=== PATIENT | female | born 1945 | race Caucasian/White ===

== ENCOUNTER → 2017-03-21 | Outpatient (CLI) | payer OTHER ==
[~2017-03-21] MED LIST: ASPI81CH PO; ATOR20 PO; BACL10 PO; MAGNESIUM; OMEP20ER PO; PANT40 PO; PROLIA60 MG/1 ML SC; VITAMIN B12-FO1 EACH PO
== END | disposition home or self-care (01) ==
LOC: LAB 14:00
DX: N39.0 Urinary tract infection, site not specified (principal)
CPT/HCPCS: 87077; 87086; 87186

== ENCOUNTER → 2017-12-11 | Outpatient (CLI) | payer OTHER ==
[~2017-12-11] MED LIST changes: -ATOR20 PO; -BACL10 PO; -PANT40 PO; -PROLIA60 MG/1 ML SC
== END | disposition home or self-care (01) ==
LOC: LAB 17:38 → LAB SHORT 17:38
DX: R31.29 Other microscopic hematuria (principal)
CPT/HCPCS: 87077; 87086; 87186

== ENCOUNTER → 2018-05-01 | Outpatient (CLI) | payer OTHER ==
[~2018-05-01] MED LIST changes: +ATOR20 PO; +BACL10 PO; +PANT40 PO; +PROLIA60 MG/1 ML SC
[2018-05-01 14:21] LABS: Candida species (DNA Probe) Positive (NEGATIVE); G. vaginalis (DNA Probe) Negative (NEGATIVE); T. vaginalis (DNA Probe) Negative (NEGATIVE)
== END | disposition home or self-care (01) ==
LOC: LAB 10:53 → LAB SHORT 10:53
PROVIDERS: Nurse Practitioner Obstetrics & Gynecology
DX: N76.0 Acute vaginitis (principal)
CPT/HCPCS: 87480; 87510; 87660

== ENCOUNTER → 2018-07-01 | Outpatient (CLI) | payer OTHER ==
[2018-07-02 09:50] LABS: Candida species (DNA Probe) Positive (NEGATIVE); G. vaginalis (DNA Probe) Negative (NEGATIVE); T. vaginalis (DNA Probe) Negative (NEGATIVE)
== END | disposition home or self-care (01) ==
LOC: LAB SHORT 11:47 → LAB 11:47
PROVIDERS: Nurse Practitioner Obstetrics & Gynecology
DX: B37.3 Candidiasis of vulva and vagina (principal)
CPT/HCPCS: 87480; 87510; 87660

== ENCOUNTER → 2018-08-13 | Outpatient (CLI) | payer OTHER ==
[2018-08-14 06:27] LABS: Candida species (DNA Probe) Negative (NEGATIVE); G. vaginalis (DNA Probe) Negative (NEGATIVE); T. vaginalis (DNA Probe) Negative (NEGATIVE)
== END | disposition home or self-care (01) ==
LOC: LAB SHORT 14:44 → LAB 14:44
PROVIDERS: Nurse Practitioner Obstetrics & Gynecology
DX: N76.0 Acute vaginitis (principal)
CPT/HCPCS: 87480; 87510; 87660

== ENCOUNTER → 2019-08-22 | Outpatient (CLI) | payer OTHER ==
[2019-08-22 20:08] LABS: Bilirubin, Urine Neg (Neg); Blood, Urine 3+ (Neg); Glucose Qualitative, Urine Neg (Neg); Ketones, Urine Neg (Neg); Leukocyte Esterase, Urine 1+ (Neg); Nitrite, Urine Neg (Neg); Protein, Urine Neg (Neg); Urobilinogen, Urine NORM (Normal)
[2019-08-22 20:21] LABS: Appearance, Urine Cloudy (Clear); Color, Urine Yellow (P-Yellow)
[2019-08-22 20:22] LABS: Amorphous Heavy (0-Heavy); Bacteria Mod /hpf; Red Blood Cells, Urine 0-2 /hpf (0-2); Squamous Epithelial Cells Few /hpf (Few)
== END | disposition home or self-care (01) ==
LOC: LAB 18:26 → LAB SHORT 18:26
PROVIDERS: Obstetrics & Gynecology
DX: R32 Unspecified urinary incontinence (principal)
CPT/HCPCS: 81001; 87086

== ENCOUNTER 2019-11-09 17:42 | Emergency (ER) | payer OTHER ==
[~2019-11-09] VITALS: Ht 165.1 cm; Wt 70.3 kg
== END 2019-11-09 19:49 | disposition home or self-care (01) ==
LOC: ER 17:42
DX: T16.1XXA Foreign body in right ear, initial encounter (principal); E78.5 Hyperlipidemia, unspecified; K21.9 Gastro-esophageal reflux disease without esophagitis; Z88.8 Allergy status to other drugs, medicaments and biological substances; Z79.82 Long term (current) use of aspirin; Z79.899 Other long term (current) drug therapy; Z87.891 Personal history of nicotine dependence
CPT/HCPCS: 99282

== ENCOUNTER 2020-01-05 07:49 | Day surgery (SDC) | payer OTHER ==
[~2020-01-05] VITALS: Ht 165.1 cm; Wt 70.9 kg
[~2020-01-05 07:49] MED LIST changes: +Calcium Carbon500 MG PO; +Vitamin D2000 UNIT PO
== END 2020-01-05 10:00 | disposition home or self-care (01) ==
LOC: ORSCSDS 07:49 → ORD 09:15 → ORSCSDS 10:00
PROVIDERS: Internal Medicine Gastroenterology
PROC: 0DBK8ZX Excision of Ascending Colon, Via Natural or Artificial Opening Endoscopic, Diagnostic (ICD-10-PCS; principal; 2020-01-05 09:15)
PROC: 0DBL8ZX Excision of Transverse Colon, Via Natural or Artificial Opening Endoscopic, Diagnostic (ICD-10-PCS; principal; 2020-01-05 09:15)
PROC: 0DBN8ZX Excision of Sigmoid Colon, Via Natural or Artificial Opening Endoscopic, Diagnostic (ICD-10-PCS; principal; 2020-01-05 09:15)
PROC: 0DBM8ZX Excision of Descending Colon, Via Natural or Artificial Opening Endoscopic, Diagnostic (ICD-10-PCS; principal; 2020-01-05 09:15)
DX: Z12.11 Encounter for screening for malignant neoplasm of colon (principal); Z86.010 Personal history of colon polyps; D12.2 Benign neoplasm of ascending colon; D12.3 Benign neoplasm of transverse colon; K63.5 Polyp of colon; K64.8 Other hemorrhoids; K57.30 Diverticulosis of large intestine without perforation or abscess without bleeding; Z87.891 Personal history of nicotine dependence; Z79.899 Other long term (current) drug therapy
CPT/HCPCS: 88305; J2704; J7120

== ENCOUNTER 2020-05-17 19:49 | Observation (INO) | payer OTHER ==
[~2020-05-17] VITALS: Ht 165.1 cm; Wt 72.4 kg
[2020-05-17 20:25] LABS: BASOPHILS ABSOLUTE AUTO 0.05 K/mm3 (0.00-0.23); BASOPHILS PERCENT AUTO 1 % (0-2); EOSINOPHILS ABSOLUTE AUTO 0.14 K/mm3 (0.00-0.68); EOSINOPHILS PERCENT AUTO 2 % (0-6); IMMATURE GRAN ABSOLUTE AUTO 0.04 K/mm3 (0.00-0.10); IMMATURE GRAN PERCENT AUTO 1 % (0-1); LYMPHOCYTES ABSOLUTE AUTO 1.68 K/mm3 (0.84-5.20); LYMPHOCYTES PERCENT AUTO 21 % (21-46); MONOCYTES ABSOLUTE AUTO 0.76 K/mm3 (0.16-1.47); MONOCYTES PERCENT AUTO 10 % (4-13); Mean Corpuscular HGB 32.5 pg (26.0-34.0); Mean Corpuscular Volume 93 fL (80-100); Mean Platelet Volume 11.4 fL (9.1-12.4); NEUTROPHILS ABSOLUTE AUTO 5.19 K/mm3 (1.96-9.15); NEUTROPHILS PERCENT AUTO 66 % (41-73); Platelet Count 147 K/mm3 (150-400); RDW Coefficient Variation 11.9 % (11.7-14.2); RDW Standard Deviation 40.9 fL (35.1-46.3); Red Blood Cell Count 4.31 M/mm3 (3.80-5.20); White Blood Cell Count 7.86 K/mm3 (4.00-11.30)
[2020-05-17 20:41] LABS: Alanine Aminotransfer (ALT/SGP 18 U/L (12-78); Albumin, Blood 3.7 g/dL (3.4-5.0); Albumin/Globulin Ratio 1.3 (0.8-1.8); Alk Phos 89 U/L (50-136); Anion Gap 8 mmol/L (6-16); Aspartate Aminotrans (AST/SGOT 15 U/L (12-37); Bilirubin, Total 0.6 mg/dL (0.1-1.0); Blood Urea Nitrogen 11 mg/dL (8-24); CO2, Blood 27 mmol/L (21-32); Calcium, Blood 9.2 mg/dL (8.5-10.1); Chloride, Blood 109 mmol/L (98-108); Creatinine, Blood 0.92 mg/dL (0.40-1.00); Globulin, Blood 2.9 g/dL (2.2-4.0); Glomerular Filtration Rate >60 (60-); Glucose, Blood 82 mg/dL (70-99); Potassium, Blood 3.6 mmol/L (3.5-5.5); Sodium, Blood 144 mmol/L (136-145); Total Protein, Blood 6.6 g/dL (6.4-8.2)
[2020-05-17 20:58] LABS: Troponin I <0.015 ng/mL (0.000-0.040)
[2020-05-17] MEDS ORDERED: BUPR150ER PO (23:33)
[2020-05-18 04:57] LABS: BASOPHILS ABSOLUTE AUTO 0.03 K/mm3 (0.00-0.23); BASOPHILS PERCENT AUTO 1 % (0-2); EOSINOPHILS ABSOLUTE AUTO 0.23 K/mm3 (0.00-0.68); EOSINOPHILS PERCENT AUTO 4 % (0-6); Hematocrit 35.5 % (33.0-51.0); Hemoglobin 12.3 g/dL (11.5-16.0); IMMATURE GRAN ABSOLUTE AUTO 0.02 K/mm3 (0.00-0.10); IMMATURE GRAN PERCENT AUTO 0 % (0-1); LYMPHOCYTES ABSOLUTE AUTO 1.41 K/mm3 (0.84-5.20); LYMPHOCYTES PERCENT AUTO 23 % (21-46); MONOCYTES ABSOLUTE AUTO 0.67 K/mm3 (0.16-1.47); MONOCYTES PERCENT AUTO 11 % (4-13); Mean Corpuscular HGB 32.2 pg (26.0-34.0); Mean Corpuscular HGB Conc 34.6 g/dL (31.5-36.5); Mean Corpuscular Volume 93 fL (80-100); Mean Platelet Volume 11.8 fL (9.1-12.4); NEUTROPHILS PERCENT AUTO 62 % (41-73); Platelet Count 120 K/mm3 (150-400); RDW Coefficient Variation 12.1 % (11.7-14.2); RDW Standard Deviation 41.1 fL (35.1-46.3); Red Blood Cell Count 3.82 M/mm3 (3.80-5.20); White Blood Cell Count 6.16 K/mm3 (4.00-11.30)
[2020-05-18 05:19] LABS: Alanine Aminotransfer (ALT/SGP 21 U/L (12-78); Albumin, Blood 3.1 g/dL (3.4-5.0); Albumin/Globulin Ratio 1.2 (0.8-1.8); Alk Phos 69 U/L (50-136); Anion Gap 6 mmol/L (6-16); Aspartate Aminotrans (AST/SGOT 19 U/L (12-37); Blood Urea Nitrogen 10 mg/dL (8-24); Bun/Creatinine Ratio 11.8 (12.0-20.0); CO2, Blood 28 mmol/L (21-32); Calcium, Blood 8.5 mg/dL (8.5-10.1); Chloride, Blood 111 mmol/L (98-108); Creatinine, Blood 0.85 mg/dL (0.40-1.00); Globulin, Blood 2.5 g/dL (2.2-4.0); Glomerular Filtration Rate >60 (60-); Glucose, Blood 84 mg/dL (70-99); Potassium, Blood 3.6 mmol/L (3.5-5.5); Sodium, Blood 145 mmol/L (136-145); Total Protein, Blood 5.6 g/dL (6.4-8.2)
--- NOTE | 2020-05-18 05:39 | NUR ---
SHIFT SUMMARY: PT IS ALERT AND ORIENTED. PT IS CALM AND COOPERATIVE WITH CARE. PT CALLS APPROPRIATELY. PT REPORTS CONTINUED VERTIGO WITH MOVEMENT. PT REPORTS HEADACHE, CALLED DR. BLACKMON AND RECEIVED A PRN ORDER FOR TYLENOL. PT SLEPT MUCH OF THE NIGHT AFTER ADMISSION. PT DENIES NAUSEA, VOMITING, AND SOB. NO ACUTE CHANGES OR EVENTS OVERNIGHT. BED IN LOW POSITION, CALL LIGHT WITHIN REACH. WILL CONTINUE TO MONITOR.
[2020-05-18 12:58] LABS: Source, Urine Catheter
[2020-05-18 13:22] LABS: Appearance, Urine Clear (Clear); Bilirubin, Urine Neg (Neg); Blood, Urine 1+ (Neg); Color, Urine Yellow (P-Yellow); Glucose Qualitative, Urine Neg (Neg); Ketones, Urine Neg (Neg); Leukocyte Esterase, Urine Neg (Neg); Nitrite, Urine Neg (Neg); Protein, Urine Neg (Neg); Specific Gravity, Urine 1.005 (1.003-1.022); Urobilinogen, Urine NORM (Normal); pH, Urine 6.5 (5.0-8.0)
[2020-05-18 13:32] LABS: Bacteria Few /hpf; Red Blood Cells, Urine 0-2 /hpf (0-2); Squamous Epithelial Cells Few /hpf (Few); White Blood Cells, Urine 0-2 /hpf (0-5)
[2020-05-18 13:33] LABS: Other Crystals Few /hpf
--- NOTE | 2020-05-18 15:37 | NUR ---
ADMIT: 05/17/20 DISCHARGE: DX: vertigo CC: cpeabody VIOLETTA CALL: Met with Melvina, call her at home for violetta RESIDENCE: Home CAREGIVER: Raisa Ocasio, Family Member, DX: GERD, St's esophagus, hearing loss, gastroparesis syndrome, see list DME: none CCM: none HOME HEALTH: none SUMMARY: Admit 05/17/20 05/18/20 Met with Melvina, updated white board, introduction to EFM and DR Collins, Per Dr Collins, ETA discharge Sunday. cp 1. 74-year-old female, presenting with persistent severe dizziness, likely due to vertigo.
--- NOTE | 2020-05-18 16:58 | NUR ---
SHIFT SUMMARY- PT A/O X3. PT CONTINUES TO REPORT DIZZINESS OR FEELING OF ROOM SPINNING WITH MOVING HEAD LEFT TO RIGHT OR SITTING UP. PT EVAL TODAY COMPLETED. PT CONTINUES TO REFUSE TO GET UP BUT STATES SHE WANTS TO GO HOME. PT REPORTS NAUSEA WITH THE DIZZINESS. PRN TYLENOL GIVEN FOR HEADACHE THIS AM. PT REPORTS SHE HAS HISTORY OF VERTIGO BUT NONE THAT HAS LASTED THIS LONG. LS CLEAR, ON RA. TELE SR AT 79. NO OTHER ACUTE CHANGES THIS SHIFT.
--- NOTE | 2020-05-19 05:59 | NUR ---
HARDCOPY SHIFT SUMMARY IN PT CHART - DOWNTIME
[2020-05-19] MEDS ORDERED: MECL25 PO (14:41)
--- NOTE | 2020-05-19 14:59 | NUR ---
DISCHARGE INSTRUCTIONS REVIEWED WITH PT. IV DC'D INTACT. RX FAXED TO [facility] PT ANXIOUS TO GO HOME. PT ABLE TO SIT UP AND TRANSFER WITH MINIMAL SPINNING BUT STILL FRUSTRATED THAT SHE DID NOT GET ANSWERS SHE WANTED. [facility] HEAD OF ADVERTISING IN WITH PT DISCUSSING F/U APPT, SHE REPORTS SHE WILL PASS ALONG POSSIBLE RECOMMENDATION TO F/U WITH AN ENT PER THERAPY. PT DC'D HOME, ESCORTED OUT VIA W/C TO D/C HOME WITH FRIEND AT [id number].
--- NOTE | 2020-05-19 18:43 | NUR ---
ADMIT: 05/17/20 DISCHARGE: 05/19/20 DX: vertigo CC: cpeabody VIOLETTA CALL: Met with Melvina, call her at home for violetta RESIDENCE: Home CAREGIVER: Raisa Ocasio, Family Member, DX: GERD, St's esophagus, hearing loss, gastroparesis syndrome, see list DME: none CCM: none HOME HEALTH: none SUMMARY: Admit 05/17/20 05/19/20 Discharge, home. Met with Melvina, was frustrated that Dr Collins did not take the time to explain how a pcp would follow up on her condition and explain what could be happening. I apologized stating that often patients leave here without definate answers to problems, but PCP will use this visit to support investigating further into her problems. I think she was more upset by his bedside manor than the facts :( PT is recommending PCP refer patient to a ENT to look into sinus problems. Discussed VIOLETTA call and 1 week follow up, left her violetta letter. Has a ride home, can get new meds, will call me if she does not receive violetta call. cp 05/18/20 Met with Melvina, updated white board, introduction to EFM and DR Collins, Per Dr Collins, ETA discharge Sunday. cp 1. 74-year-old female, presenting with persistent severe dizziness, likely due to vertigo.
== END 2020-05-19 15:00 | disposition home or self-care (01) ==
LOC: ER 19:49 → MEDS 19:50
PROVIDERS: Physician Assistant; ADMIT Internal Medicine
DX: H81.399 Other peripheral vertigo, unspecified ear (principal); J32.3 Chronic sphenoidal sinusitis; E78.5 Hyperlipidemia, unspecified; K21.9 Gastro-esophageal reflux disease without esophagitis; F17.210 Nicotine dependence, cigarettes, uncomplicated; Z88.8 Allergy status to other drugs, medicaments and biological substances
CPT/HCPCS: 36415; 70450; 71045; 80053; 81001; 82947; 84484; 85025; 93005; 93010; 96372; 97110; 97162; 99285-25; A9270; G0378; J1650; J7030

== ENCOUNTER → 2020-10-26 | Outpatient (CLI) | payer OTHER ==
[~2020-10-26] MED LIST changes: +BUPR150ER PO; +MECL25 PO
[2020-10-26 13:15] LABS: Source, Urine Voided
[2020-10-26 15:39] LABS: Appearance, Urine Turbid (Clear); Blood, Urine 2+ (Neg); Color, Urine Yellow (P-Yellow); Glucose Qualitative, Urine Neg (Neg); Ketones, Urine 1+ (Neg); Leukocyte Esterase, Urine 2+ (Neg); Nitrite, Urine Neg (Neg); Protein, Urine 2+ (Neg); Urobilinogen, Urine NORM (Normal)
[2020-10-26 16:32] LABS: Bilirubin, Urine 1+ (Neg)
[2020-10-26 16:34] LABS: Amorphous Heavy (0-Heavy); Bacteria Many /hpf; Squamous Epithelial Cells Many /hpf (Few)
== END | disposition home or self-care (01) ==
LOC: LAB 13:12 → LAB SHORT 13:12
PROVIDERS: Nurse Practitioner Family
DX: R34 Anuria and oliguria (principal)
CPT/HCPCS: 81001; 87086

== ENCOUNTER 2021-03-22 06:45 | Day surgery (SDC) | payer MEDICARE, OTHER ==
[~2021-03-22] VITALS: Ht 165.1 cm; Wt 74.0 kg
[~2021-03-22 06:45] MED LIST changes: +METO25 PO
[2021-03-22] MEDS ORDERED: PROLIA60 MG/1 ML SC (07:14)
[2021-03-22 07:34] LABS: BASOPHILS ABSOLUTE AUTO 0.05 K/mm3 (0.00-0.23); BASOPHILS PERCENT AUTO 1 % (0-2); EOSINOPHILS ABSOLUTE AUTO 0.31 K/mm3 (0.00-0.68); EOSINOPHILS PERCENT AUTO 4 % (0-6); Hematocrit 44.6 % (33.0-51.0); Hemoglobin 15.4 g/dL (11.5-16.0); IMMATURE GRAN ABSOLUTE AUTO 0.03 K/mm3 (0.00-0.10); IMMATURE GRAN PERCENT AUTO 0 % (0-1); LYMPHOCYTES ABSOLUTE AUTO 1.92 K/mm3 (0.84-5.20); LYMPHOCYTES PERCENT AUTO 25 % (21-46); MONOCYTES ABSOLUTE AUTO 0.92 K/mm3 (0.16-1.47); MONOCYTES PERCENT AUTO 12 % (4-13); Mean Corpuscular HGB 33.9 pg (26.0-34.0); Mean Corpuscular HGB Conc 34.5 g/dL (31.5-36.5); Mean Corpuscular Volume 98 fL (80-100); Mean Platelet Volume 12.4 fL (9.1-12.4); NEUTROPHILS ABSOLUTE AUTO 4.38 K/mm3 (1.96-9.15); NEUTROPHILS PERCENT AUTO 58 % (41-73); Platelet Count 141 K/mm3 (150-400); RDW Coefficient Variation 11.9 % (11.7-14.2); RDW Standard Deviation 43.5 fL (35.1-46.3); Red Blood Cell Count 4.54 M/mm3 (3.80-5.20); White Blood Cell Count 7.61 K/mm3 (4.00-11.30)
[2021-03-22 07:45] LABS: Bun/Creatinine Ratio 10.7 (12.0-20.0); Calcium, Blood 8.6 mg/dL (8.5-10.1); Creatinine, Blood 1.03 mg/dL (0.40-1.00); Potassium, Blood 3.9 mmol/L (3.5-5.5)
[2021-03-22 07:50] LABS: International Normalized Ratio 1.02; Prothrombin Time Results 10.7 Sec (9.7-11.5)
--- NOTE | 2021-03-22 12:45 | NUR ---
PT UP TO BATHROOM /C SBA. TOLERATED WELL. -BLEEDING OR SWELLING R GROIN.
--- NOTE | 2021-03-22 13:13 | NUR ---
PT VERBALIZED UNDERSTANDING OR WRITTEN AND VERBAL D/C INST. IV REMOVED. PT WILL BE TAKEN OUT OF THE HRT CENTER VIA W/C.
== END 2021-03-22 13:58 | disposition home or self-care (01) ==
LOC: MHTC 06:45
PROVIDERS: Internal Medicine Interventional Cardiology
DX: I35.0 Nonrheumatic aortic (valve) stenosis (principal); I25.10 Atherosclerotic heart disease of native coronary artery without angina pectoris
CPT/HCPCS: 76937; 80048; 85025; 85610; 93458; 93567; 99152; 99153; C1769; C1894; G0278; J1644; J2250; J3010; J7030; J7040; J7050; Q9967

== ENCOUNTER 2021-06-29 07:18 | Day surgery (SDC) | payer MEDICARE, OTHER ==
[~2021-06-29] VITALS: Ht 162.6 cm; Wt 70.0 kg
--- NOTE | 2021-06-29 07:49 | NUR ---
History, Chart, Medications and Allergies reviewed before start of procedure. Patient States Post-Procedure ride home has been arranged.
--- NOTE | 2021-06-29 09:01 | NUR ---
06/29/21 0901 Avery Stephens History, Chart, Medications and Allergies reviewed before start of procedure. Patient confirms NPO status and agrees with scheduled surgery. 3-LEAD EKG REVIEWED WITH PHYSICIAN PRIOR TO START OF PROCEDURE. MONITOR INTACT WITH CONTINUOUS PULSE OXIMETRY AND INTERMITTENT BP. PATIENT DETERMINED TO BE ASA APPROPRIATE FOR PROPOFOL SEDATION PRIOR TO START OF PROCEDURE BY DR. PEDERSEN
--- NOTE | 2021-06-29 09:46 | NUR ---
Patient up to Ambulate independently. Gait steady. Discharge instructions reviewed with patient. Patient verbalizes understanding. Copy given to patient to take home. Patient States Post-Procedure ride home has been arranged with [facility]. Discharged via wheelchair to private car for ride home.
== END 2021-06-29 09:58 | disposition home or self-care (01) ==
LOC: ORSCMMR 07:18 → ORD 08:30 → ORSCMMR 09:58
PROVIDERS: Internal Medicine Gastroenterology
PROC: 0DB48ZX Excision of Esophagogastric Junction, Via Natural or Artificial Opening Endoscopic, Diagnostic (ICD-10-PCS; principal; 2021-06-29 08:30)
PROC: 0DB58ZX Excision of Esophagus, Via Natural or Artificial Opening Endoscopic, Diagnostic (ICD-10-PCS; principal; 2021-06-29 08:30)
DX: K22.70 Barrett's esophagus without dysplasia (principal); K21.9 Gastro-esophageal reflux disease without esophagitis; E78.00 Pure hypercholesterolemia, unspecified; I35.0 Nonrheumatic aortic (valve) stenosis; Z79.899 Other long term (current) drug therapy
CPT/HCPCS: 88305; A9270; J2704; J7120